=== PATIENT | female | born 1995 | race Hispanic/Latino ===

== ENCOUNTER 2019-09-30 14:00 | Outpatient (CLI) | payer MEDICAID ==
[2019-09-30 14:22] VITALS: BP 122/61
[2019-09-30] MEDS ORDERED: LACTATED RINGERS 1,000 ML ONE (15:27)
--- NOTE | 2019-09-30 15:50 | Event Note ---
Date: 09/30/19 (Pt with c/o ctxs ) Pt is a 23 y.. , presents to triage with c/o ctxs. She states ctxs that started this AM and have become stronger. Her exam this afternoon was 2.5/50/-3. Explained exam to pt. She is having irregular ctxs, but no cervical change since this AM. Will give IV while in triage, and then recheck cervix. Will give Vistaril for sleep and discharge home. She has FOC with her during today's triage visit.
[2019-09-30] MEDS ORDERED: LACTATED RINGERS 1,000 ML IV ONE (16:09)
--- NOTE | 2019-09-30 17:08 | Event Note ---
Date: 09/30/19 (Pt stable for discharge home.) Pt with unchanged cervix. heart rate tracing of category 1 throughout triage stay. Will discharge pt home. Given labor precautions and pt to follow up in the office. Pt verbalized understanding of these instructions. Pt was discharged home in stable condition and ambulatory.
== END 2019-09-30 17:44 | disposition home or self-care (01) ==
LOC: TRG 14:00 → APU 14:02 → TRG 17:44
PROVIDERS: ATTEND Obstetrics & Gynecology
DX: O47.1 False labor at or after 37 completed weeks of gestation (principal); Z3A.38 38 weeks gestation of pregnancy
CPT/HCPCS: 59025; J7120; Q0177